=== PATIENT | female | born 2000 | race Caucasian/White ===

== ENCOUNTER 2022-09-23 23:51 | Inpatient (IN) | payer BC ==
[~2022-09-23] VITALS: Ht 312.4 cm; Wt 62.5 kg
[2022-09-24] VITALS (1023 sets, daily range): BP systolic 87–124; BP diastolic 65–93; PULSE 82–108; TEMP 97.3–98.4; O2SAT 91–100
[2022-09-24 00:06] LABS: BASO # 0.1 K/mm3 (0.0-0.2); BASO % 0.5 % (0.0-2.0); EOS # 0.1 K/mm3 (0.0-0.7); EOS % 0.4 % (0.0-4.0); GRAN # 10.1 K/mm3 (1.4-6.5); GRAN % 73.7 % (42.2-75.2); HEMATOCRIT 37.3 % (35.0-45.0); HEMOGLOBIN 12.8 g/dl (12.0-15.0); LYMPH # 2.6 K/mm3 (1.2-3.4); LYMPH % 19.1 % (20.0-51.0); MEAN CELL VOLUME 83 fl (80.0-95.0); MEAN CORPUSCULAR HEMOGLOBIN 28 pg (26-32); MEAN CORPUSCULAR HGB CONC 34 g/dl (33.0-37.0); MEAN PLATELET VOLUME 9.3 fl (7.4-10.4); MONO # 0.8 K/mm3 (0.1-0.6); MONO % 5.8 % (1.7-9.3); PLATELET COUNT 211 K/mm3 (130-400); RED BLOOD COUNT 4.51 M/mm3 (4.10-5.30); REDCELL DISTRIBUTION WIDTH-CV 12.7 % (11.5-14.5)
[2022-09-24 00:27] LABS: ALANINE AMINOTRANSFERASE 17 U/L (0-55); ALBUMIN 4.2 gm/dL (3.5-5.0); ALKALINE PHOSPHATASE 99 U/L (40-150); ANION GAP 10 mmol/L (7-16); AST,SGOT 20 U/L (5-34); BILIRUBIN,TOTAL 0.4 mg/dL (0.2-1.2); BLOOD UREA NITROGEN 14 mg/dL (8-21); CALCIUM 9.1 mg/dL (8.4-10.2); CARBON DIOXIDE 21 mmol/L (22-29); CHLORIDE 109 mmol/L (98-107); CREATININE, serum 0.88 mg/dL (0.57-1.11); GLUCOSE 130 mg/dL (70-99); SODIUM 140 mmol/L (136-145); TOTAL PROTEIN 7.3 gm/dL (6.2-8.1)
[2022-09-24 00:33] LABS: ACETAMINOPHEN < 1.0 ug/mL (10-30); ALCOHOL(ethanol),MEDICAL < 10 mg/dL (0-10); SALICYLATE < 5.0 mg/dL (15.0-30.0); TROPONIN-I < 0.010 ng/mL (0.00-0.033)
--- NOTE | 2022-09-24 01:00 | NUR ---
JUAN FLOW NURSE CALLED BY ER STAFF. NOTIFIED THAT ER WAS INTUBATING IN ROOM 8. FLOW NURSE X2 PRESENTED TO ER TO ASSIST WITH INTUBATION. SUPPLIES FOR INTUBATION PREPARED. DOCTOR CALLING FOR A REGULAR STYLET AND A 7.5 SIZE ETT. OBTAINED BOTH IN ADDITION TO SYRINGE FOR PLANNING SPECIALIST BALLOON. ALSO OBTAINED INLINE SUCTION CATH AND ETT FACE CHINCHILLA. JUAN, BAGGING PT DURING INTUBATION. MULTIPLE ATTEMPTS TO INTUBATE PT. PT SLIGHTLY MOVING DURING INTUBATION. POSITIVE COLOR CHANGE ON ETCO2 MONITOR NOTED. ASKED DOCTOR IF HE WOULD LIKE TO BORROW STETHOSCOPE TO LISTEN TO BREATH SOUNDS. HE SAID NO AND THAT HE WASN'T WORRIED ABOUT IT AND THAT THERE WAS POSITIVE COLOR CHANGE AND THAT THEY WOULD GET AN XRAY. THIS FLOW NURSE VERBALIZED UNDERSTANDING. PT SET UP ON VENTILATOR BY FLOW NURSE X2. TOLERATING WELL. PT DOES APPEAR TO BE FIDGETY. RESTRAINTS SECURE.VENT TUBING OUT OF REACH FROM PT'S HANDS. ASKED ER DOCTOR IF HE WOULD LIKE TO GET AN ABG FOR BASELINE AND HE STATED "SHE WAS 100% O2 PRIOR TO INTUBATION. IM NOT CONCERNED ABOUT IT." THIS FLOW NURSE VERBALIZED UNDERSTANDING. VENT WHEELS LOCKED. VENT HOOKED UP TO RED OUTLET. AMBUBAG IN ROOM WITH A PEEP VALVE ATTACHED. WATER BAG HUMIDITY STARTED
[2022-09-24 01:08] LABS: TRICYCLIC ANTIDEPRESS URINE POSITIVE
--- NOTE | 2022-09-24 01:18 | NUR ---
PT INTUBATED IN ER. SEE PRIOR NOTE WRITTEN BY THIS HIGH LIGHTER FOR MORE DETAILS REGARDING INTUBATION. TOLERATING WELL. PLACEMENT CONFIRMED VIA BREATH SOUNDS, CO2 COLOR CHANGER, AND XRAY. JUAN RT ASSISTED WITH INTUBATION AT HEAD OF BED AND PERFORMED BAGGING WHILE THIS HIGH LIGHTER SET UP VENTILATOR AND PLACED TUBE CHINCHILLA ON. ALSO CHECKED BALLOON LEAK/INFLATION.
--- NOTE | 2022-09-24 01:55 | NUR ---
Received report from ED nurseAmarilis.
--- NOTE | 2022-09-24 02:11 | NUR ---
Patient arrives to ICU room 6 via ED stretcher. Patient arrives intubated. She does not open her eyes to painful or verbal stimuli, however, she does withdraw extremities in response to pain. Continues to receive versed and propofol drips, see IV drip titrations. Initial vitals within normal limits. Anastasiya, hospitalist, aware of patient's arrival and is at bedside.
--- NOTE | 2022-09-24 03:00 | NUR ---
No external belongings brought with patient upon arrival to unit. However, patient is currently wearing a gold-colored necklace, four gold-colored hoop earrings, a clear-colored gem stud earing, a gold-colored bracelet, and a silver and gold-colored watch. Watch and bracelet are bagged and labeled with patient sticker. Other jewelry remains on her person at this time.
--- NOTE | 2022-09-24 03:30 | NUR ---
Updated poison control.
--- NOTE | 2022-09-24 03:47 | NUR ---
Patient intubated prior to arrival to ICU. Unable to perform suicide risk assessment at this time.
[2022-09-24 06:57] LABS: CREATININE, serum 0.8 mg/dL (0.57-1.11); MAGNESIUM 2.4 mg/dL (1.7-2.2); POTASSIUM 4.1 mmol/L (3.5-4.5)
[2022-09-24 07:03] LABS: ARTERIAL BLOOD GAS PCO2 33.7 mmHg (35-45); ARTERIAL BLOOD GAS PO2 191.3 mmHg (80-100); ARTERIAL BLOOD GAS pH 7.44 (7.35-7.45)
[2022-09-24 07:04] LABS: ARTERIAL BLOOD GAS BASE EXCESS 23.5 (-2-2); ARTERIAL BLOOD GAS HCO3 22.5 meq/L (22-26)
--- NOTE | 2022-09-24 10:51 | NUR ---
Patient currently intubated and sedated. LAMIN spoke with test technician who believes the patient will remain on the vent approx. for the next 24-36 hours. Per physician, patient OD on Amitriptyline for SI attempt. Patient has a hx of trauma and past SI attempts, and recently moved here to live with her father. She will need to be screened by [facility] once medically stable.
--- NOTE | 2022-09-24 13:52 | NUR ---
SW received phone call from [facility] Sesay ([phone]) stating that the patients father has been working with her to get the patient admitted to an inpatient facility. Educated her on the patients condition and once medically stable, she will have to be screened by [facility] who will then determine what the patients needs are.
--- NOTE | 2022-09-24 19:00 | NUR ---
Received report from MASOOD Wolfe, and MASOOD Jesus. Patient remains on ventilator. She is resting quietly in bed. All vitals within normal limits. Continues to receive versed and propofol drips, see IV drip titrations. She does not appear to be in any obvious discomfort; tolerating ventilator well. Bed in lowest position, all alarms on.
--- NOTE | 2022-09-24 19:14 | NUR ---
POISON CONTROL CALLED TO FOLLOW UP ON PT. REVIEWED EKG AND LABS. POSION CONTROL STATES NO FURTHER EKGS PER POSION CONTROL. WILL FOLLOW UP IN THE MORNING. WHEN PT IS EXTUBTED OF DELIRUM OCCURS RIVASTIGAMINE 3MG CAN BE GIVEN.
[2022-09-25] VITALS (963 sets, daily range): BP systolic 104–124; BP diastolic 68–83; PULSE 80–141; TEMP 98.1–99.7; O2SAT 89–100
--- NOTE | 2022-09-25 03:42 | NUR ---
NO DISTRESS NOTED. PT IS RESTING COMFORTABLY IN BED. NO CONCERNS VOICED FROM RN. RAILS UP X4. RESTRAINTS SECURE X2 NO COMPLICATIONS WITH VENT CHECK OR ORAL CARE. NO CHANGES MADE.
--- NOTE | 2022-09-25 05:00 | NUR ---
Patient has had uneventful shift. This RN attempted to titrate versed down early in shift due to low arousability, however, patient did not tolerate so much as one titration and drip was returned to previous rate. Afterwards, patient was easily aroused by physical stimuli. Drips have remain untouched since. See IV drip titrations.
[2022-09-25 05:20] LABS: BASO # 0.1 K/mm3 (0.0-0.2); BASO % 0.5 % (0.0-2.0); EOS # 0.3 K/mm3 (0.0-0.7); GRAN # 6.2 K/mm3 (1.4-6.5); GRAN % 60.8 % (42.2-75.2); LYMPH # 2.6 K/mm3 (1.2-3.4); LYMPH % 25.9 % (20.0-51.0); MEAN CELL VOLUME 86 fl (80.0-95.0); MEAN CORPUSCULAR HGB CONC 34 g/dl (33.0-37.0); MEAN PLATELET VOLUME 9.8 fl (7.4-10.4); MONO % 9.5 % (1.7-9.3); PLATELET COUNT 163 K/mm3 (130-400); RED BLOOD COUNT 3.72 M/mm3 (4.10-5.30); REDCELL DISTRIBUTION WIDTH-CV 13.2 % (11.5-14.5)
[2022-09-25 05:36] LABS: CALCIUM 8.3 mg/dL (8.4-10.2); CHOLESTEROL RISK RATIO 4.1; CREATININE, serum 0.86 mg/dL (0.57-1.11); MAGNESIUM 1.8 mg/dL (1.7-2.2); POTASSIUM 3.6 mmol/L (3.5-4.5)
[2022-09-25 05:42] LABS: HEMATOCRIT 31.8 % (35.0-45.0); HEMOGLOBIN 10.7 g/dl (12.0-15.0); MEAN CORPUSCULAR HEMOGLOBIN 29 pg (26-32)
--- NOTE | 2022-09-25 08:39 | NUR ---
BEDSIDE REPORT RECEIVED FROM MASOOD WHITE. PT REMAINS ON VENTILATOR, 7.5 ETT MEASURES 22CM AT TEETH, AC MODE, TV 420, PEEP 5, FIO2 30%, RATE 12. OG TUBE IN PLACE TO LIS MEASURES 55 AT TEETH. SEDATION AND FLUIDS INFUSING TO R UPPER ARM PICC, SEE MAR/TITRATION FLOW SHEET. RODRIGUEZ CATHETER IN PLACE TO DEPENDENT DRAINAGE. PT REPOSITIONED EVERY 2 HOURS TO PREVENT SKIN BREAKDOWN.
[2022-09-25 09:17] LABS: ARTERIAL BLD GAS O2 SATURATION 98.4 % (92-100); ARTERIAL BLD GAS TCO2 CT 23.1; ARTERIAL BLOOD GAS BASE EXCESS -1.4 (-2-2); ARTERIAL BLOOD GAS HCO3 22.1 meq/L (22-26); ARTERIAL BLOOD GAS PCO2 33.2 mmHg (35-45); ARTERIAL BLOOD GAS PO2 126.7 mmHg (80-100); ARTERIAL BLOOD GAS pH 7.44 (7.35-7.45)
--- NOTE | 2022-09-25 17:08 | NUR ---
SEDATION DECREASED THIS MORNING THEN DISCONTINUED ORDERED PER DR HENNESSY, PT TOLERATED BREATHING TRIAL WELL. PT EXTUBATED AT 1415, VSS, O2 SAT 98-100% ON ROOM AIR. PT ABLE TO EAT AND TAKE PO FLUIDS AFTER EXTUBATION. SUICIDE PRECAUTION PROTOCOL PUT IN TO PLACE ORDERED PER DR WHITE. RECORDS FAXED TO [facility] FOR PSYCH EVAL. PER [facility], FAX RECEIVED AND PT IS IN CUE TO BE SCREENED.
--- NOTE | 2022-09-25 20:30 | NUR ---
Patient alert, pleasant, and answers orientation questions appropriately. However, patient is still exhibiting signs of some AMS and confusion. Speech is somewhat rambled and she is confused regarding where she is at. Auditory hallucinations also noted. Patient stated she heard, "two men outside my door talking about the sandwhich I'm eating." On a separate occasion, she stated she heard her dad talking in the hallway. Patient was assisted to the toilet and it was noted by this RN that patient's gait was very unsteady and she tended to lean to the right side. A second RN had assited the patient to toilet earlier in shift, and she also expressed concerns for right sided weakness. No facial droop or slurred speech noted by either RN. Hospitalist, Anastasiya, notified of the above. Orders received for head CT.
--- NOTE | 2022-09-25 21:00 | NUR ---
Patient screened via Zoom meeting with [facility]. The screener, Marycarmen, discussed safety plan with patient and this RN. Per screener, she felt as though the patient is still somewhat confused and altered from the sedatives she received during her time on ventilator. This RN reiterated that patient was just extubated this afternoon around 1400. Prior to extubation, patient had been receiving pretty significant doses of sedatives. At this time, the screener and this RN agree patient is not properly oriented and a second screen is likely necessary at another time to develope an effective safety plan.
[2022-09-26] VITALS (22 sets, daily range): BP systolic 114–126; BP diastolic 70–94; PULSE 85–133; TEMP 98.3–99.3; O2SAT 96
[2022-09-26 05:57] LABS: ARTERIAL BLOOD GAS PCO2 30.9 mmHg (35-45); ARTERIAL BLOOD GAS pH 7.48 (7.35-7.45)
[2022-09-26 05:58] LABS: ARTERIAL BLD GAS O2 SATURATION 97.9 % (92-100); ARTERIAL BLOOD GAS BASE EXCESS -0.3 (-2-2); ARTERIAL BLOOD GAS HCO3 22.4 meq/L (22-26); ARTERIAL BLOOD GAS PO2 108.7 mmHg (80-100)
[2022-09-26 06:02] LABS: BASO # 0.1 K/mm3 (0.0-0.2); BASO % 0.6 % (0.0-2.0); EOS # 0.4 K/mm3 (0.0-0.7); EOS % 3.2 % (0.0-4.0); GRAN # 6.2 K/mm3 (1.4-6.5); GRAN % 56.4 % (42.2-75.2); HEMATOCRIT 34.3 % (35.0-45.0); HEMOGLOBIN 11.5 g/dl (12.0-15.0); LYMPH # 3.1 K/mm3 (1.2-3.4); LYMPH % 28.2 % (20.0-51.0); MEAN CELL VOLUME 85 fl (80.0-95.0); MEAN CORPUSCULAR HEMOGLOBIN 28 pg (26-32); MEAN CORPUSCULAR HGB CONC 34 g/dl (33.0-37.0); MEAN PLATELET VOLUME 9.1 fl (7.4-10.4); MONO # 1.2 K/mm3 (0.1-0.6); MONO % 11.3 % (1.7-9.3); PLATELET COUNT 180 K/mm3 (130-400); RED BLOOD COUNT 4.06 M/mm3 (4.10-5.30)
--- NOTE | 2022-09-26 06:15 | NUR ---
This RN spoke with patient's mom, Maria Teresa, at length this morning regarding patient's history. Per Maria Teresa, patient has had 6-7 suicide attempts and has left AMA from inpatient treatment mulitple times in the past. Maria Teresa states, "Fiorella thinks inpatient treatment is punishment for failing to kill herself." Maria Teresa reports patient usually appearing "clinically fine," when speaking with psychiatrists and mental health professionals and that she hides her depression and suicidal ideation very well. Maria Teresa expresses great concern for Fiorella being discharged home or to a facility in which she will not be closley monitored. Due to significant scarring from previous self-harm attempts and patient's history, this RN strongly agrees patient requires close monitoring and a strong safety plan.
[2022-09-26 06:20] LABS: CALCIUM 8.5 mg/dL (8.4-10.2); CREATININE, serum 0.82 mg/dL (0.57-1.11); MAGNESIUM 1.8 mg/dL (1.7-2.2); POTASSIUM 3.6 mmol/L (3.5-4.5)
--- NOTE | 2022-09-26 07:00 | NUR ---
Report received from MASOOD Gómez; patient currently resting in bed with no fluids or meds running through her right upper arm PICC. Patient is still in suicide precautions and is a 1:1; patient is in henry gown and room has been cleared as much as possible. Patient's vital signs are within normal limits this morning with the exception of heart rate, which has been tachycardic and in the 120s-140s. Patient is on room air and there are no other lines or tubes in place at this time.
--- NOTE | 2022-09-26 07:45 | NUR ---
Returned phone call to patient's dad, Harvey. Harvey also heavily encourages Fiorella receive inpatient treatment in which she is closley monitored.
--- NOTE | 2022-09-26 12:00 | NUR ---
Patient seen by Dr. Lima and per her recommendations, patient should be re-screened by [facility] and sent for involuntary placement. Dr. Lima states that she will call Harvey, patient's father, and discuss options. Patient has not been medically cleared and will not be until tomorrow, September 27; at that time she can be re-screened.
[2022-09-26] MEDS ORDERED: DESYREL 100MG100 MG PO (13:57)
[2022-09-26] MEDS ORDERED: LIPITOR 10MG10 MG PO (13:58)
[2022-09-26] MEDS ORDERED: LASIX 40MG TABL40 MG PO (13:58)
[2022-09-26] MEDS ORDERED: THEO-24 30300 MG/CAP PO (13:59)
[2022-09-26] MEDS ORDERED: HCTZ 25MG TAB25 MG PO (14:00)
[2022-09-26] MEDS ORDERED: ZOLOFT 25MG25 MG PO (14:00)
[2022-09-26] MEDS ORDERED: ELIQUIS 5MG PO (14:01)
[2022-09-26] MEDS ORDERED: MAGNESIUM200 MG PO (14:02)
[2022-09-26] MEDS ORDERED: ZYRTEC 10MG10 MG PO (14:02)
[2022-09-26] MEDS ORDERED: MUCINEX 60600 MG/TA1 PO (14:04)
[2022-09-26] MEDS ORDERED: SPIRIVA RE2.5 MCG/Ac IH (14:04)
[2022-09-26] MEDS ORDERED: VENTOLIN0.09 MG IH (14:05)
[2022-09-26] MEDS ORDERED: BREZTRI AEROS10.7 GM IH (14:06)
--- NOTE | 2022-09-26 17:45 | NUR ---
Pt transfered to medical unit with DARRELL escort. Called Татьяна CORREIA to notify her that the DISTRICT LEADER would be coming with her as a sitter. Clothing and personal belongings sent with DARRELL. Instructed him that she could not have those in her room once she arrived.
--- NOTE | 2022-09-26 17:45 | NUR ---
Pt transferred up to medical room 314, sitter with the patient. Pt is alert and oriented, she denies SOB. On RA. Lungs CTA. Heart rate tachy. No pain currently. No edema present. IVF infusing into RUE PICC. Pt inquiring if there is "anything else wrong with me that you're watching from the overdose". Discussed with her the tachycardia. No needs at this time. Call light within reach.
[2022-09-27] VITALS (32 sets, daily range): BP systolic 113–145; BP diastolic 60–96; PULSE 94–124; TEMP 97.8–98.8
--- NOTE | 2022-09-27 06:34 | NUR ---
pt is 1:1 status with sitter, slept well tonight, IVF infusing per PICC @100 cc/hr, up to restroom with assist, requested something for constipation prior to bedtime, notified RUBÉN Townsend and order rec'd, first dose given. no results yet. pt's mother called for updates x2, pt requesting to take shower today and would like to walk in the halls with assist. pt also asking if she can have visitors, will need to check with doctor first for approval.
[2022-09-27 06:45] LABS: BASO # 0.1 K/mm3 (0.0-0.2); BASO % 0.5 % (0.0-2.0); EOS # 0.6 K/mm3 (0.0-0.7); GRAN # 5.4 K/mm3 (1.4-6.5); GRAN % 58.1 % (42.2-75.2); LYMPH # 2.3 K/mm3 (1.2-3.4); LYMPH % 25.2 % (20.0-51.0); MEAN CELL VOLUME 87 fl (80.0-95.0); MEAN CORPUSCULAR HEMOGLOBIN 29 pg (26-32); MEAN CORPUSCULAR HGB CONC 33 g/dl (33.0-37.0); MEAN PLATELET VOLUME 9.6 fl (7.4-10.4); MONO # 0.9 K/mm3 (0.1-0.6); MONO % 9.8 % (1.7-9.3); PLATELET COUNT 187 K/mm3 (130-400); RED BLOOD COUNT 4.19 M/mm3 (4.10-5.30); REDCELL DISTRIBUTION WIDTH-CV 13.2 % (11.5-14.5)
[2022-09-27 06:46] LABS: HEMATOCRIT 36.4 % (35.0-45.0)
[2022-09-27 07:00] LABS: CALCIUM 8.9 mg/dL (8.4-10.2); CREATININE, serum 0.8 mg/dL (0.57-1.11); MAGNESIUM 1.7 mg/dL (1.7-2.2); POTASSIUM 3.6 mmol/L (3.5-4.5)
[2022-09-27] MEDS ORDERED: DESYREL 50MG50 MG PO (07:47)
[2022-09-27] MEDS ORDERED: AMITRIPTYLINE H50 M1 PO (07:47)
--- NOTE | 2022-09-27 09:25 | NUR ---
The hospitalist notified LAMIN that the patient has been medically cleared. LAMIN contacted and faxed the patient's records to [facility] to screen. Awaiting screen and recs. LAMIN updated the patient's RN.
--- NOTE | 2022-09-27 15:11 | NUR ---
The recovery unit operator transferred a call from the patient's father. LAMIN updated the patient's father on the process and how [facility] will assist with finding placement. Her father would like to talk to [facility] and he reiterates how he has been in contact with [facility]. [facility] screened the patient. LAMIN then followed up with Maite at [facility]. Maite states that the patient is voluntary and they are waiting to find placement for the patient. She confirms that she has talked to the patient's father and they have a referral out to [facility]. *Discharge plan: Awaiting inpatient psych placement*
--- NOTE | 2022-09-27 20:00 | NUR ---
Assessment complete. A&Ox4. Denies pain/nausea/shortness of breath. VS remain stable. Family is at bedside. Noted to be tachycardic. Right upper arm PICC flushes without difficulty. LR@100ml/hr. Plan of care discussed for this shift to include vitals/sitter/calling for questions/concerns. Call light in reach. Will monitor.
[2022-09-28] VITALS (7 sets, daily range): BP systolic 110–131; BP diastolic 62–80; PULSE 95–134; TEMP 97.7–98.4
--- NOTE | 2022-09-28 06:25 | NUR ---
Patient had an uneventful night. Rested off and on with sitter-1:1. Tolerating diet. Voiding without difficulty. LR@100ml/hr to right upper arm pick. No s/s of distress noted. Will monitor.
--- NOTE | 2022-09-28 10:16 | NUR ---
LAMIN contacted [facility] to follow up about placement. Maximiliano reports that the therapist is still working on finding placement and they have been in contact with the patient's father. [facility] reports that they will contact us when they have an update or have found placement.
--- NOTE | 2022-09-28 12:56 | NUR ---
Maite, at [facility], contacted this SW. She states that the facilities are requesting updated notes and in writing, that the patient is no longer on the vent. LAMIN updated the hospitalist and obtained that note. LAMIN faxed the requested documentation to [place].
[2022-09-28 23:46] LABS: CALCIUM 9.3 mg/dL (8.4-10.2); CREATININE, serum 0.8 mg/dL (0.57-1.11); POTASSIUM 3.9 mmol/L (3.5-4.5)
--- NOTE | 2022-09-28 23:50 | NUR ---
NURSING SHIFT ASSESSMENT COMPLETED. THE PATIENT DENIED PAIN OR DISCOMFORT. SITTER AT BEDSIDE DUE TO SUICIDE ATTEMPT. THE PATIENT IS CALM, COOPERATIVE AND WATCHING TV. THE PATIENT DENIED NEEDS. THE PATIENT'S EVENING MEDICATIONS DISCUSSED WELL THE PLAN OF CARE. NO ACUTE DISTRESS NOTED. SITTER CONTINUES. WILL MONITOR.
[2022-09-29] VITALS (15 sets, daily range): BP systolic 108–116; BP diastolic 56–79; PULSE 108–131; TEMP 98.1–98.9
[2022-09-29 00:08] LABS: TRICYCLIC ANTIDEPRESS URINE POSITIVE
[2022-09-29 01:43] LABS: BASO # 0.1 K/mm3 (0.0-0.2); BASO % 0.6 % (0.0-2.0); EOS # 0.5 K/mm3 (0.0-0.7); EOS % 5.7 % (0.0-4.0); GRAN # 3.6 K/mm3 (1.4-6.5); GRAN % 39.8 % (42.2-75.2); HEMATOCRIT 39.2 % (35.0-45.0); HEMOGLOBIN 13.3 g/dl (12.0-15.0); LYMPH # 3.7 K/mm3 (1.2-3.4); LYMPH % 41.2 % (20.0-51.0); MEAN CELL VOLUME 84 fl (80.0-95.0); MEAN CORPUSCULAR HEMOGLOBIN 29 pg (26-32); MEAN CORPUSCULAR HGB CONC 34 g/dl (33.0-37.0); MEAN PLATELET VOLUME 9.5 fl (7.4-10.4); MONO # 1.1 K/mm3 (0.1-0.6); MONO % 12.3 % (1.7-9.3); PLATELET COUNT 242 K/mm3 (130-400); RED BLOOD COUNT 4.66 M/mm3 (4.10-5.30); REDCELL DISTRIBUTION WIDTH-CV 12.8 % (11.5-14.5)
--- NOTE | 2022-09-29 04:17 | NUR ---
[facility] RECEIVED THE REQUESTED FAX INFORMATION REGARDING THIS PATIENT FOR THE [facility] INPATIENT PSYCH REFERRAL. PER MARGARET THE FAX WAS RECEIVED AND THE INFORMATION HAD BEEN FORWARDED TO [facility] INPATIENT PSYCH.
--- NOTE | 2022-09-29 07:15 | NUR ---
Pt awake and laying in bed. Shift assessment completed. VSS. PICC in R upper arm remains in place; no edema or redness. Pt denies c/o pain. No request at this time. Remains on 1:1 suicide precautions.
--- NOTE | 2022-09-29 08:00 | NUR ---
PICC flushed by electrical discharge machine operator, Dani.
--- NOTE | 2022-09-29 09:30 | NUR ---
Pts vitals signs faxed to [place] and [facility] at this time.
--- NOTE | 2022-09-29 09:37 | NUR ---
LAMIN called and informed by nurse that father would like a called placed to him due to having questions in regard to patient discharge and transfer. LAMIN reviewed documenation that states [facility] is coordinating servies for patient's inpatient stay. LAMIN called father to answer questions and father stated SW needed to fax information to [facility] immediately due to agency holding a bed for patient. LAMIN informed father that documenatation would be sent to [facility] in line with documenation stating they are coordinating services. Father began to be upset stating I was not complying with what needs to be done in order to have his daughter transferred to the correct facility. Father stated that his daughter would not be going to [facility] per [facility] as patient and he would like her to go to [facility]. LAMIN informed father that documentation would be sent to [facility] as previously stated. Father began to yell at stating she would be responsible for patient harming her self and holding her up in hospital and losing [facility] bed. LAMIN informed by father that he was a physician and he placed who SW assumes in patient's mother on the phone. The woman present on phone stated she wanted to speak to my superior immediately. LAMIN provided [facility] Nurse number. Woman continued to yell at stating SW better fax information now and she would be to facility soon to speak to superior. LAMIN called jorgito to inform of information previously stated. Jorgito called [facility] staff to discuss situation and confirmed they are coordinating services and to send information to their agency rather than [facility] directly. Documenation faxed to [facility].
--- NOTE | 2022-09-29 13:54 | NUR ---
LAMIN informed that patient agreed to go to for inpatient stay by [facility] Staff Nikkie. LAMIN called House nurse to inform to schedule secure transport to facility.
--- NOTE | 2022-09-29 15:10 | NUR ---
Report given to MASOOD Ayala at [facility]. All questions answered.
--- NOTE | 2022-09-29 18:11 | NUR ---
Transportation unable to transfer pt to [facility] Supervisor. This nurse notified pt and Harvey (father). This nurse also notified MASOOD Ayala at [facility] and [facility] staff.
[2022-09-30] VITALS (18 sets, daily range): BP systolic 107–125; BP diastolic 56–79; PULSE 98–117; TEMP 98–98.8
--- NOTE | 2022-09-30 06:26 | NUR ---
Patient care, medication administration and nursing documentation occurred during a Daylight Savings Time Change.
--- NOTE | 2022-09-30 07:45 | NUR ---
Pt laying in bed. Refused morning medication as she states she is no longer having issues with constipation. Shift assessment completed. Dressing on R upper arm remains CDI. No further request at this time. BING Varma remains in pt room as pt requires 1:1 sitter for suicide precautions.
--- NOTE | 2022-09-30 08:27 | NUR ---
THE PATIENT WAS AWAKE A LOT LAST NIGHT USING HER PHONE. THE PATIENT HAD A 1:1 SITTER FOR SUICIDAL IDIATION. THE PATIENT DENIED PAIN OR DISCOMFORT. SITTER AT BEDSIDE. WILL MONITOR.
--- NOTE | 2022-09-30 13:15 | NUR ---
Secure transportation arrived to medical floor. Pt envelope given to transportation. Pt escorted out of facility with all personal belongings at this time. MASOOD Ayala from [facility] notified of pts departure time.
== END 2022-09-30 13:15 | DRG 918 ==
LOC: COL.ER 23:51 → ICU 09-24 01:31 → MEDICAL 09-26 18:19 → SURG 09-27 15:23 → MEDICAL 09-30 13:15
PROVIDERS: Emergency Medicine Emergency Medical Services; Internal Medicine Pulmonary Disease; Student in an Organized Health Care Education/Training Program; ADMIT Hospitalist
PROC: 0BH17EZ Insertion of Endotracheal Airway into Trachea, Via Natural or Artificial Opening (ICD-10-PCS; principal; 2022-09-24)
PROC: 02H633Z Insertion of Infusion Device into Right Atrium, Percutaneous Approach (ICD-10-PCS; 2022-09-24)
PROC: 5A1945Z Respiratory Ventilation, 24-96 Consecutive Hours (ICD-10-PCS; 2022-09-24)
DX: T43.012A Poisoning by tricyclic antidepressants, intentional self-harm, initial encounter (principal); F41.9 Anxiety disorder, unspecified; D72.829 Elevated white blood cell count, unspecified; F43.10 Post-traumatic stress disorder, unspecified; F31.9 Bipolar disorder, unspecified; F60.3 Borderline personality disorder; F41.1 Generalized anxiety disorder; K59.00 Constipation, unspecified; Z91.51 Personal history of suicidal behavior; Z20.822 Contact with and (suspected) exposure to COVID-19
CPT/HCPCS: A4314; C1751; C9113; J0330; J1650; J2060; J2251; J2704; J3475; J3480; J7030; J7120